=== PATIENT | male | born 1955 | race Caucasian/White ===

== ENCOUNTER 2021-05-22 15:13 | Emergency (ER) | payer SELFPAY | END 2021-05-22 17:45 | disposition left against medical advice (07) | LOC: ER1 15:13 | DX: Z53.21 Procedure and treatment not carried out due to patient leaving prior to being seen by health care provider (principal) ==

== ENCOUNTER 2021-08-28 20:41 | Emergency (ER) | payer MEDICARE ==
[2021-08-28 22:37] LABS: HEMOGLOBIN 15.3 gm/dl (14.0-17.5); RED BLOOD COUNT 4.75 M/UL (4.20-5.50); WHITE BLOOD COUNT 11.6 K/UL (4.5-11.0)
[2021-08-28 22:58] LABS: BUN/CREATININE RATIO 21 (0-10)
== END 2021-08-28 23:08 | disposition home or self-care (01) ==
LOC: ER1 20:41
PROVIDERS: Physician Assistant
DX: R06.02 Shortness of breath (principal); R42 Dizziness and giddiness; F17.200 Nicotine dependence, unspecified, uncomplicated; Z95.1 Presence of aortocoronary bypass graft; Z88.0 Allergy status to penicillin
CPT/HCPCS: 70450; 71045; 80053; 82550; 82553; 83874; 84484; 85025; 93005; 99285

== ENCOUNTER → 2021-11-10 | Outpatient (CLI) | payer MEDICARE ==
[2021-11-10 12:16] LABS: RED BLOOD COUNT 5.18 M/UL (4.20-5.50)
[2021-11-11 07:10] LABS: A/G RATIO 3.5 (1.2-2.2); ALKALINE PHOSPHATASE, S 76 IU/L (44-121); ALT (SGPT) 13 IU/L (0-44); AST (SGOT) 20 IU/L (0-40); BILIRUBIN, TOTAL 0.5 mg/dL (0.0-1.2); BUN 15 mg/dL (8-27); BUN/CREATININE RATIO 14 (10-24); CALCIUM, SERUM 9.3 mg/dL (8.6-10.2); CARBON DIOXIDE, TOTAL 20 mmol/L (20-29); CHLORIDE, SERUM 106 mmol/L (96-106); EGFR IF AFRICN AM 82 (>59); EGFR IF NONAFRICN AM 71 (>59); GLOBULIN, TOTAL 1.5 g/dL (1.5-4.5); GLUCOSE, SERUM 93 mg/dL (65-99); POTASSIUM, SERUM 4.1 mmol/L (3.5-5.2); PROTEIN, TOTAL, SERUM 6.8 g/dL (6.0-8.5); SODIUM, SERUM 141 mmol/L (134-144); VITAMIN D, 25-HYDROXY 70.2 ng/mL (30.0-100.0)
[2021-11-11 08:13] LABS: CHOLESTEROL, TOTAL 179 mg/dL (100-199); FSH 11.5 mIU/mL (1.5-12.4); HDL CHOLESTEROL 28 mg/dL (>39); LDL CHOLESTEROL CALC 120 mg/dL (0-99); LDL/HDL RATIO 4.3 ratio (0.0-3.6); LUTEINIZING HORMONE(LH) 5.8 mIU/mL (1.7-8.6); PROLACTIN 10.5 ng/mL (4.0-15.2); T. CHOL/HDL RATIO 6.4 ratio (0.0-5.0); TRIGLYCERIDES 172 mg/dL (0-149)
== END ==
LOC: LAB 11:51
PROVIDERS: Family Medicine
DX: Z12.5 Encounter for screening for malignant neoplasm of prostate (principal); E78.5 Hyperlipidemia, unspecified; E55.9 Vitamin D deficiency, unspecified
CPT/HCPCS: 36415; 80053; 80061; 82672; 83001; 83002; 84146; 84402; 84403; 84439; 84443; 85027; G0103

== ENCOUNTER → 2021-11-10 | Outpatient (CLI) | payer MEDICARE, OTHER | LOC: EXRD 11:23 | DX: M25.512 Pain in left shoulder (principal); M19.90 Unspecified osteoarthritis, unspecified site | CPT/HCPCS: 73030 ==

== ENCOUNTER 2021-12-08 01:07 | Inpatient (IN) | payer MEDICARE, MEDICAID ==
[~2021-12-08] VITALS: Ht 172.7 cm; Wt 70.3 kg
[2021-12-08 01:52] LABS: RED BLOOD COUNT 4.99 M/UL (4.20-5.50); WHITE BLOOD COUNT 13.4 K/UL (4.5-11.0)
[2021-12-08 02:26] LABS: BUN/CREATININE RATIO 19 (0-10)
[2021-12-08] MEDS ORDERED: VITAMIN D325 MC6 PO (10:54)
[2021-12-08] MEDS ORDERED: MULTIVITAMIN1 EACH PO (10:54)
[2021-12-08] MEDS ORDERED: VITAMIN E180 M1 PO (10:54)
[2021-12-08] MEDS ORDERED: ASPIRIN EC81 MG PO (10:55)
[2021-12-08] MEDS ORDERED: ATORVASTATIN CA10 MG PO (10:57)
[2021-12-09 03:16] LABS: HEMOGLOBIN 13.4 gm/dl (14.0-17.5); WHITE BLOOD COUNT 14.5 K/UL (4.5-11.0)
[2021-12-09 03:20] LABS: RED BLOOD COUNT 4.44 M/UL (4.20-5.50)
[2021-12-09 03:24] LABS: BUN/CREATININE RATIO 22 (0-10)
[2021-12-09] MEDS ORDERED: BRILINTA 90 MG90 MG PO (10:40)
[2021-12-09] MEDS ORDERED: CRESTOR 10 MG T10 MG PO (10:40)
[2021-12-09] MEDS ORDERED: NITROGLYCERIN0.4 MG SL (10:40)
--- NOTE | 2021-12-09 11:38 | NUR ---
CASE MANAGEMENT WAS CONSULTED FOR PHARMACY COVERAGE AND THEY WERE NOT ABLE TO DO ANYTHING WITH THE [employer] PRECRIPTION AND THAT IS WOULD COST $540. 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
== END 2021-12-09 13:32 | disposition home or self-care (01) | DRG 246 ==
LOC: ER1 01:07 → PROG CARE 06:57 → CDU 06:57 → PROG CARE 15:56
PROVIDERS: Internal Medicine Cardiovascular Disease; Student in an Organized Health Care Education/Training Program; ADMIT Internal Medicine
PROC: 4A023N7 Measurement of Cardiac Sampling and Pressure, Left Heart, Percutaneous Approach (ICD-10-PCS; principal; 2021-12-08)
PROC: 027035Z Dilation of Coronary Artery, One Artery with Two Drug-eluting Intraluminal Devices, Percutaneous Approach (ICD-10-PCS; 2021-12-08)
PROC: B2111ZZ Fluoroscopy of Multiple Coronary Arteries using Low Osmolar Contrast (ICD-10-PCS; 2021-12-08)
PROC: B240ZZ3 Ultrasonography of Single Coronary Artery, Intravascular (ICD-10-PCS; 2021-12-08)
PROC: 8E0ZXY6 Isolation (ICD-10-PCS; 2021-12-08)
PROC: B24BZZZ Ultrasonography of Heart with Aorta (ICD-10-PCS; 2021-12-08)
DX: I21.4 Non-ST elevation (NSTEMI) myocardial infarction (principal); U07.1 COVID-19; F17.200 Nicotine dependence, unspecified, uncomplicated; I25.110 Atherosclerotic heart disease of native coronary artery with unstable angina pectoris; I10 Essential (primary) hypertension; E78.5 Hyperlipidemia, unspecified; Z90.49 Acquired absence of other specified parts of digestive tract; Z90.89 Acquired absence of other organs; Z98.890 Other specified postprocedural states; Z95.1 Presence of aortocoronary bypass graft; Z88.0 Allergy status to penicillin; Z82.49 Family history of ischemic heart disease and other diseases of the circulatory system; Z79.82 Long term (current) use of aspirin; Z79.899 Other long term (current) drug therapy
CPT/HCPCS: ECHO; 36415; 71045; 80048; 80061; 82550; 82553; 84484; 85025; 85027; 85347; 85610; 85730; 92978; 93005; 93306; 99152; 99153; 99285; C1725; C1753; C1769; C1874; C1887; C1894; C9600; J1644; J2250; J3010; J7030; Q9967; U0002

== ENCOUNTER → 2022-07-28 | Outpatient (CLI) | payer MEDICARE ==
[~2022-07-28] MED LIST: ASPIRIN EC81 MG PO; ATORVASTATIN CA10 MG PO; BRILINTA 90 MG90 MG PO; CRESTOR 10 MG T10 MG PO; MULTIVITAMIN1 EACH PO; NITROGLYCERIN0.4 MG SL; VITAMIN D325 MC6 PO; VITAMIN E180 M1 PO
== END ==
LOC: KOH-I 10:42
DX: Z12.2 Encounter for screening for malignant neoplasm of respiratory organs (principal); F17.210 Nicotine dependence, cigarettes, uncomplicated; R63.4 Abnormal weight loss; R91.8 Other nonspecific abnormal finding of lung field
CPT/HCPCS: 71271